=== PATIENT | male | born 1945 | race Caucasian/White ===

== ENCOUNTER → 2016-04-08 | Outpatient (CLI) | payer MEDICARE, OTHER ==
[~2016-04-08] MED LIST: ASPIRIN E.C. 8181 MG PO; CELEBREX 200MG200 MG PO; GLUCOPHAGE500 MG/TAB PO; GLUCOSAMINE & C1 CA2 PO; KOMBIGLYZE; LEVEMIR100 U/ML SQ; ZESTRIL 20MG TA20 MG PO
== END ==
LOC: COL.RAD 07:22
DX: Z13.6 Encounter for screening for cardiovascular disorders (principal); Z87.891 Personal history of nicotine dependence

== ENCOUNTER → 2017-05-05 | Outpatient (CLI) | payer MEDICARE, OTHER | LOC: SUN.DIA 15:01 | DX: E11.9 Type 2 diabetes mellitus without complications (principal); Z79.4 Long term (current) use of insulin; I10 Essential (primary) hypertension; E66.9 Obesity, unspecified; Z68.33 Body mass index [BMI] 33.0-33.9, adult; Z71.3 Dietary counseling and surveillance | CPT/HCPCS: G0108 ==

== ENCOUNTER → 2017-05-07 | Outpatient (CLI) | payer MEDICARE, OTHER | LOC: SUN.DIA 10:57 | DX: E11.9 Type 2 diabetes mellitus without complications (principal); Z79.4 Long term (current) use of insulin; I10 Essential (primary) hypertension; E66.9 Obesity, unspecified; Z68.33 Body mass index [BMI] 33.0-33.9, adult; Z71.3 Dietary counseling and surveillance ==

== ENCOUNTER → 2017-05-20 | Outpatient (CLI) | payer MEDICARE, OTHER | LOC: SUN.DIA 16:18 | DX: E11.9 Type 2 diabetes mellitus without complications (principal); Z79.4 Long term (current) use of insulin; I10 Essential (primary) hypertension; E66.9 Obesity, unspecified; Z71.3 Dietary counseling and surveillance | CPT/HCPCS: G0109 ==

== ENCOUNTER → 2017-06-17 | Outpatient (CLI) | payer MEDICARE, OTHER | LOC: SUN.DIA 08:52 | DX: E11.9 Type 2 diabetes mellitus without complications (principal); Z79.4 Long term (current) use of insulin; I10 Essential (primary) hypertension; E66.9 Obesity, unspecified; Z68.33 Body mass index [BMI] 33.0-33.9, adult; Z71.3 Dietary counseling and surveillance ==